=== PATIENT | male | born 1970 | race Caucasian/White ===

== ENCOUNTER 2025-03-24 15:58 | Emergency (ER) | payer BC ==
[~2025-03-24] VITALS: Ht 167.6 cm; Wt 65.8 kg
[2025-03-24 16:07] VITALS: BP 93/58; TEMP 98.1
[2025-03-24 18:00] VITALS: O2SAT 98
== END 2025-03-24 18:01 | disposition home or self-care (01) ==
LOC: ER 16:09
DX: R76.11 Nonspecific reaction to tuberculin skin test without active tuberculosis (principal); Z88.2 Allergy status to sulfonamides
CPT/HCPCS: 71045-TC